=== PATIENT | male | born 1980 | race Caucasian/White ===

== ENCOUNTER 2022-06-16 17:34 | Emergency (ER) | payer SELFPAY | END 2022-06-16 21:48 | disposition left against medical advice (07) | LOC: ERS 17:34 | DX: Z53.21 Procedure and treatment not carried out due to patient leaving prior to being seen by health care provider (principal) ==

== ENCOUNTER 2022-06-30 09:17 | Emergency (ER) | payer SELFPAY | END 2022-06-30 10:14 | disposition home or self-care (01) | LOC: ERS 09:17 | DX: L03.116 Cellulitis of left lower limb (principal) | CPT/HCPCS: 94760 ==

== ENCOUNTER 2023-05-12 18:11 | Inpatient (IN) | payer OTHER, SELFPAY ==
[~2023-05-12 18:11] MED LIST: Iopamidol-370 76% 500 ML MDV (1 ML CHARGE) ONE
[2023-05-12 18:37] LABS: #Basophils 0.1 thou/uL (0.0-0.2); #Eosinphils 0.1 thou/uL (0.0-0.7); #Neutrophils 5.3 thou/uL (1.40-6.50); %Basophils 0.6 % (0.0-1.0); %Eosinophils 0.9 % (0.0-10.0); %Monocytes 10.2 % (0.0-10.0); %Neutrophils 56.7 % (42.0-75.0); Hematocrit 38.5 % (42.0-52.0); Hemoglobin 13.7 g/dL (14.0-18.0); Mean Corpuscular HGB CONC 35.6 g/dL (32.0-36.0); Mean Corpuscular Hemoglobin 32.6 pg (27.0-31.0); Mean Corpuscular Volume 91.7 fl (78.0-98.0); Mean Platelet Volume 8.7 fL (7.4-10.4); Platelet Count 235 10x3/uL (130-400); RBC Distribution Width 12.4 % (11.5-14.5); White Blood Cell (WBC) Count 9.4 10x3/uL (4.8-10.8)
[2023-05-12] MEDS ORDERED: Ondansetron PF 4 MG/2 ML Vial ONE (18:39)
[2023-05-12] MEDS ORDERED: Morphine 4 MG/ML VIAL ONE ×2 (18:39→20:38)
[2023-05-12 18:49] LABS: Prothrombin Time 13.7 sec (12.0-14.7)
[2023-05-12 18:51] LABS: PTT 22.8 sec (22.9-36.1)
[2023-05-12] MEDS ORDERED: Boostrix 0.5 ML (Tdap) VIAL (>/=7 yrs of age) ONE (18:57)
[2023-05-12] MEDS ORDERED: CEFAZOLIN 2 GM VIAL ONE (18:57)
[2023-05-12 19:03] LABS: ALT (SGPT) 15 U/L (8-55); AST (SGOT) 20 U/L (5-34); Albumin 4.2 g/dL (3.5-5.0); Alkaline Phosphatase 63 U/L (40-110); Anion Gap 15 mmol/L (10-20); BUN (Urea Nitrogen) 19 mg/dL (8.9-20.6); Bilirubin, Total Less than 1.0 mg/dL (0.2-1.2); Calc. Creatinine Clearance 0 mL/min (70-130); Calcium 9.5 mg/dL (7.8-10.44); Carbon Dioxide 20 mmol/L (22-29); Chloride 111 mmol/L (98-107); Estimated GFR 107; Globulin 2.5 g/dL (2.4-3.5); Glucose 118 mg/dL (70-105); Lipase 24 U/L (8-78); Protein, Total 6.7 g/dL (6.0-8.3); Sodium 142 mmol/L (136-145)
[2023-05-12] MEDS ORDERED: TETANUS, DIPHTHERIA TOX,ADULT (TDVAX) 0.5 ML VIAL IM ONE (19:10)
[2023-05-12] MEDS ORDERED: hydrALAZINE 20 MG/ML VIAL SLOW IVP PRN (19:10)
[2023-05-12] MEDS ORDERED: Ondansetron PF 4 MG/2 ML Vial IVP PRN (19:10)
[2023-05-12] MEDS ORDERED: Ipratropium/Albuterol 3 ML NEB NEB PRN (19:10)
[2023-05-12] MEDS ORDERED: HumaLOG 300 UNITS/3 ML VIAL SC PRN (19:10)
[2023-05-12 21:56] VITALS: BMI 23.7
[2023-05-12] MEDS: Sodium Chloride 0.9% 1,000 ML IV SCH (22:07)
[2023-05-12] MEDS: Famotidine/PF 20 mg/2ml Vial SLOW IVP SCH (22:15)
[2023-05-12] MEDS: Acetaminophen 500 MG TAB PO SCH (22:17)
[2023-05-12] MEDS: Dexamethasone 4 mg/ml Vial SLOW IVP SCH (22:17)
[2023-05-13] MEDS: Acetaminophen 500 MG TAB PO SCH ×4 (02:46→20:02)
[2023-05-13] MEDS: Dexamethasone 4 mg/ml Vial SLOW IVP SCH ×3 (02:49→13:48)
[2023-05-13 04:40] LABS: Amphetamine Detected (NotDetected); Barbiturates Screen Not Detected (NotDetected); Benzodiazepine Screen Detected (NotDetected); Cocaine Metabolite Screen Not Detected (NotDetected); Methadone Not Detected (NotDetected); Methamphetamine Detected (NotDetected); Opiate Screen Detected (NotDetected); Oxycodone Screen Not Detected (NotDetected); Phencyclidine (PCP) Not Detected (NotDetected); THC/Cannabinoid Screen Not Detected (NotDetected); Tricyclic Screen Not Detected (NotDetected)
[2023-05-13] MEDS: Sodium Chloride 0.9% 1,000 ML IV SCH ×3 (04:53→20:13)
[2023-05-13 05:21] LABS: #Monocytes 0.9 thou/uL (0.11-0.59); #Neutrophils 11.4 thou/uL (1.40-6.50); %Basophils 0.3 % (0.0-1.0); %Eosinophils 0.1 % (0.0-10.0); %Lymphocytes 4.9 % (21.0-51.0); %Monocytes 6.6 % (0.0-10.0); %Neutrophils 87.6 % (42.0-75.0); Hematocrit 37.7 % (42.0-52.0); Hemoglobin 13.1 g/dL (14.0-18.0); Mean Corpuscular HGB CONC 34.7 g/dL (32.0-36.0); Mean Corpuscular Hemoglobin 32.3 pg (27.0-31.0); Mean Corpuscular Volume 93.1 fl (78.0-98.0); Mean Platelet Volume 8.8 fL (7.4-10.4); Platelet Count 215 10x3/uL (130-400); RBC Distribution Width 12.5 % (11.5-14.5); Red Blood Cell (RBC) Count 4.05 mill/uL (4.70-6.10)
[2023-05-13 05:41] LABS: Anion Gap 10 mmol/L (10-20); BUN (Urea Nitrogen) 15 mg/dL (8.9-20.6); Calc. Creatinine Clearance 138 mL/min (70-130); Calcium 8.8 mg/dL (7.8-10.44); Carbon Dioxide 21 mmol/L (22-29); Chloride 110 mmol/L (98-107); Estimated GFR 116; Glucose 131 mg/dL (70-105); Potassium 3.9 mmol/L (3.5-5.1); Sodium 137 mmol/L (136-145)
[2023-05-13 05:44] LABS: INR-International Normal Ratio 1.1; PTT 26.5 sec (22.9-36.1); Prothrombin Time 14.4 sec (12.0-14.7)
[2023-05-13] MEDS: Famotidine/PF 20 mg/2ml Vial SLOW IVP SCH ×2 (08:53→20:01)
[2023-05-13] MEDS: Ampicillin/Sulbactam 3 GM in Sodium Chloride 0.9% 100 ML IVPB SCH ×3 (08:54→20:00)
[2023-05-13] MEDS ORDERED: Oxazepam 10 MG CAP PO SCH (19:15)
[2023-05-13] MEDS: Morphine 2 MG/ML VIAL SLOW IVP PRN (20:01)
[2023-05-14] MEDS: Acetaminophen 500 MG TAB PO SCH ×4 (02:09→21:07)
[2023-05-14] MEDS: Ampicillin/Sulbactam 3 GM in Sodium Chloride 0.9% 100 ML IVPB SCH ×4 (03:56→21:04)
[2023-05-14] MEDS: Sodium Chloride 0.9% 1,000 ML IV SCH ×2 (03:57→09:06)
[2023-05-14] MEDS: Morphine 2 MG/ML VIAL SLOW IVP PRN (09:06)
[2023-05-14] MEDS: Famotidine/PF 20 mg/2ml Vial SLOW IVP SCH ×2 (09:07→21:05)
[2023-05-14] MEDS: Oxazepam 10 MG CAP PO SCH ×3 (09:08→21:05)
[2023-05-14] MEDS ORDERED: Dexamethasone 20 MG/5 ML VIAL SLOW IVP SCH ×2 (15:30→23:59)
[2023-05-14] MEDS ORDERED: Dexamethasone 4 mg/ml Vial SLOW IVP SCH (16:45)
[2023-05-14] MEDS: Chlorhexidine Gluconate 15 ML UDCUP SSP SCH (21:05)
[2023-05-14] MEDS: Dexamethasone 4 mg/ml Vial SLOW IVP SCH (23:29)
[2023-05-15] MEDS: Ampicillin/Sulbactam 3 GM in Sodium Chloride 0.9% 100 ML IVPB SCH ×4 (03:14→20:32)
[2023-05-15] MEDS: Acetaminophen 500 MG TAB PO SCH ×4 (03:14→20:32)
[2023-05-15] MEDS: Oxazepam 10 MG CAP PO SCH ×3 (08:55→20:32)
[2023-05-15] MEDS: Dexamethasone 4 mg/ml Vial SLOW IVP SCH ×2 (08:55→15:55)
[2023-05-15] MEDS: Chlorhexidine Gluconate 15 ML UDCUP SSP SCH ×2 (08:56→20:33)
[2023-05-15] MEDS: Famotidine/PF 20 mg/2ml Vial SLOW IVP SCH ×2 (09:15→20:32)
[2023-05-16] MEDS: Acetaminophen 500 MG TAB PO SCH ×4 (02:51→21:03)
[2023-05-16] MEDS: Ampicillin/Sulbactam 3 GM in Sodium Chloride 0.9% 100 ML IVPB SCH ×4 (02:51→21:40)
[2023-05-16 06:35] LABS: #Monocytes 1.1 thou/uL (0.11-0.59); #Neutrophils 11.1 thou/uL (1.40-6.50); %Basophils 0.1 % (0.0-1.0); %Lymphocytes 9.5 % (21.0-51.0); %Monocytes 8.2 % (0.0-10.0); %Neutrophils 81.6 % (42.0-75.0); Hematocrit 36.2 % (42.0-52.0); Hemoglobin 12.8 g/dL (14.0-18.0); Mean Corpuscular HGB CONC 35.4 g/dL (32.0-36.0); Mean Corpuscular Hemoglobin 32.9 pg (27.0-31.0); Mean Corpuscular Volume 93.1 fl (78.0-98.0); Mean Platelet Volume 9.3 fL (7.4-10.4); Platelet Count 220 10x3/uL (130-400); RBC Distribution Width 12.6 % (11.5-14.5); Red Blood Cell (RBC) Count 3.89 mill/uL (4.70-6.10); White Blood Cell (WBC) Count 13.6 10x3/uL (4.8-10.8)
[2023-05-16] MEDS: Famotidine/PF 20 mg/2ml Vial SLOW IVP SCH ×2 (08:47→21:42)
[2023-05-16] MEDS: Oxazepam 10 MG CAP PO SCH ×3 (08:47→21:48)
[2023-05-16] MEDS: Chlorhexidine Gluconate 15 ML UDCUP SSP SCH ×2 (08:47→21:48)
[2023-05-16] MEDS: Morphine 2 MG/ML VIAL SLOW IVP PRN ×2 (15:40→21:43)
[2023-05-16] MEDS ORDERED: Fentanyl 250 MCG/5 ML VIAL ONE (16:49)
[2023-05-16] MEDS ORDERED: Oxymetazoline HCl 0.05% (30 ML BOT) ONE (16:50)
[2023-05-16] MEDS ORDERED: Lidocaine 4% Topical Sol 50 ML BOT ONE (16:50)
[2023-05-16] MEDS ORDERED: Lidocaine 2% 6 ML (Jelly) SYR ONE (16:50)
[2023-05-16] MEDS ORDERED: SUGAMMADEX SODIUM 200 MG/2 ML VIAL ONE (16:50)
[2023-05-16] MEDS ORDERED: Chlorhexidine Gluconate 15 ML UDCUP SSP ONE (17:05)
[2023-05-16] MEDS ORDERED: EPINEPHrine 1 MG/ML AMP ONE (17:05)
[2023-05-16] MEDS ORDERED: Bacitracin Zinc Ointment 30 gm TUBE ONE (17:05)
[2023-05-16] MEDS ORDERED: Lidocaine 1% (PF) 30 ML VIAL ONE (17:05)
[2023-05-16] MEDS ORDERED: MINERAL OIL/WHITE PETROLATUM 3.5 GM TUBE ONE (17:27)
[2023-05-16] MEDS ORDERED: Sevoflurane 250 ML INH ANEST BOTTLE ONE (17:31)
[2023-05-16] MEDS ORDERED: Ondansetron PF 4 MG/2 ML Vial ONE (17:43)
[2023-05-16] MEDS ORDERED: PROPOFOL 200 MG/20 ML VIAL ONE (17:43)
[2023-05-16] MEDS ORDERED: Dexamethasone 20 MG/5 ML VIAL ONE (17:43)
[2023-05-16] MEDS ORDERED: Lidocaine 1% PF 5 ML VIAL ONE (17:43)
[2023-05-16] MEDS ORDERED: Rocuronium Bromide 10 MG/ML (10ML VIAL) ONE (17:43)
[2023-05-16] MEDS ORDERED: Vancomycin 1 GM VIAL ONE (18:55)
[2023-05-16] MEDS ORDERED: Promethazine HCl 25 MG/ML VIAL IM PRN (19:43)
[2023-05-16] MEDS ORDERED: HYDROmorphone 2 MG/ML VIAL SLOW IVP PRN (19:43)
[2023-05-16] MEDS ORDERED: Ondansetron HCl/PF 4 MG/2 ML Vial IVP PRN (19:43)
[2023-05-16] MEDS ORDERED: fentaNYL 50 mcg/mL 1 mL Vial ONE (20:23)
[2023-05-16] MEDS ORDERED: HYDROmorphone 0.5 MG/0.5 ML SYRINGE ONE (20:23)
[2023-05-17] MEDS: Acetaminophen 500 MG TAB PO SCH ×2 (02:07→09:08)
[2023-05-17] MEDS: Ampicillin/Sulbactam 3 GM in Sodium Chloride 0.9% 100 ML IVPB SCH (02:07)
[2023-05-17] MEDS ORDERED: Acetaminophen/Codeine 12.5 ML UDCUP PO PRN (08:48)
[2023-05-17] MEDS ORDERED: AMOXicillin 250 MG CAP PO SCH (09:00)
[2023-05-17] MEDS: Chlorhexidine Gluconate 15 ML UDCUP SSP SCH (09:07)
[2023-05-17] MEDS: Famotidine/PF 20 mg/2ml Vial SLOW IVP SCH (09:07)
[2023-05-17] MEDS: Oxazepam 10 MG CAP PO SCH (09:07)
[2023-05-17] MEDS ORDERED: Acetaminophen W/ Codeine 5 ML UDCUP PO PRN (09:30)
[2023-05-17 11:34] VITALS: BP 112/74; TEMP 97.7
== END 2023-05-17 13:50 | disposition home or self-care (01) | DRG 957 ==
LOC: ERS 18:11 → CCU 19:12 → SURG A 05-13 14:16
PROVIDERS: ADMIT Specialist; ATTEND Specialist
PROC: 0NSM04Z Reposition Right Zygomatic Bone with Internal Fixation Device, Open Approach (ICD-10-PCS; principal; 2023-05-16)
DX: S02.40EA Zygomatic fracture, right side, initial encounter for closed fracture (principal); S06.6XAA Traumatic subarachnoid hemorrhage with loss of consciousness status unknown, initial encounter; G92.8 Other toxic encephalopathy; S27.0XXA Traumatic pneumothorax, initial encounter; S22.42XA Multiple fractures of ribs, left side, initial encounter for closed fracture; S02.401A Maxillary fracture, unspecified side, initial encounter for closed fracture; F15.10 Other stimulant abuse, uncomplicated; S01.411A Laceration without foreign body of right cheek and temporomandibular area, initial encounter; S02.411A LeFort I fracture, initial encounter for closed fracture; S02.413A LeFort III fracture, initial encounter for closed fracture; S02.5XXA Fracture of tooth (traumatic), initial encounter for closed fracture; Y03.8XXA Other assault by crashing of motor vehicle, initial encounter
CPT/HCPCS: 36415; 36416; 70450; 70486; 71045; 71260; 72125; 72170; 74177; 80048; 80053; 80306; 80307; 83605; 83690; 85025; 85610; 85730; 86850; 86900; 86901; 90471; 90715; 94760; 96365; 96375; 96376; C1713; G0390; J0171; J0295; J1100; J1170; J2001; J2270; J2272; J2405; J2704; J3010; J3370; J3490; J7050; Q9967; S0028

== ENCOUNTER 2025-06-09 20:12 | Emergency (ER) | payer SELFPAY ==
[2025-06-09] MEDS ORDERED: Ketorolac Tromethamine 30 MG (1 mL) VIAL ONE (21:39)
== END 2025-06-09 22:30 | disposition home or self-care (01) ==
LOC: ERS 20:12
DX: M25.512 Pain in left shoulder (principal); F17.290 Nicotine dependence, other tobacco product, uncomplicated
CPT/HCPCS: 96372; 99283; J1885